=== PATIENT | female | born 1970 ===

== ENCOUNTER 2022-02-11 05:49 | Inpatient (IN) ==
[2022-02-11] MEDS ORDERED: Lactated Ringers 1000 ml BAG 1,000 ML IV SCH (06:00)
[2022-02-11] MEDS ORDERED: Scopolamine 1 mg/72hr PATCH TRANSDERM ONE (06:00)
[2022-02-11] MEDS ORDERED: Buffered Lidocaine 1% SYRIN 1 ml INTRADERM ONE (06:00)
[2022-02-11] MEDS ORDERED: Famotidine IV 10 MG/ML 2 ml VIAL (20 mg) IV ONE (06:00)
[2022-02-11] MEDS ORDERED: Heparin 5000 UNITS/ML 1 mL VIAL ONE (06:11)
[2022-02-11] MEDS ORDERED: ceFAZolin 2 GM in NS PREMIX 2 GM/100 ML BAG IVPB ONE (06:11)
[2022-02-11] MEDS ORDERED: Scopolamine 1 mg/72hr PATCH ONE (06:11)
[2022-02-11] MEDS ORDERED: Dexamethasone IV 4 MG/ML VIAL 1 ml VIAL ONE (07:10)
[2022-02-11] MEDS ORDERED: Ondansetron 4 mg VIAL 2 MG/ML 2 ml VIAL ONE (07:10)
[2022-02-11] MEDS ORDERED: Propofol 10 MG/ML 20 ML BTL ONE (07:10)
[2022-02-11] MEDS ORDERED: Succinylcholine 200 mg VIAL 20 mg/ml 10 ml VIAL (200 mg) ONE (07:12)
[2022-02-11] MEDS ORDERED: Lidocaine 1% w EPI 1:200,000 SDV 30 ML VIAL ONE (07:12)
[2022-02-11] MEDS ORDERED: Bupivacaine 0.25% SDV PF 10 ML VIAL INJ ONE (07:13)
[2022-02-11] MEDS ORDERED: Methylene Blue 0.5 % 50 MG/10 ML AMP IV ONE (07:16)
[2022-02-11] MEDS ORDERED: Rocuronium 50 mg VIAL 10 mg/ml 5 ml VIAL (50 mg) ONE ×3 (07:16→09:49)
[2022-02-11] MEDS ORDERED: fentaNYL 100 mcg/2 ml 50 MCG/ML VIAL ONE (07:18)
[2022-02-11] MEDS ORDERED: Glycopyrrolate IV 0.2 MG/ML 1 ML VIAL ONE (07:18)
[2022-02-11] MEDS ORDERED: Phenylephrine IV 10 MG/ML 1 ml VIAL ONE (07:19)
[2022-02-11] MEDS ORDERED: Sodium Chloride 0.9% 10 ML ONE (07:26)
[2022-02-11] MEDS ORDERED: Dexmedetomidine 200 mcg/2 ml 2 ml VIAL (200 mcg) ONE (07:26)
[2022-02-11] MEDS ORDERED: Metoprolol Tartrate 5 mg VIAL 5 ml VIAL (1 mg/ml) ONE (08:49)
[2022-02-11] MEDS ORDERED: Metoclopramide 5 MG/ML VIAL (10 mg) ONE (08:50)
[2022-02-11] MEDS ORDERED: HYDROmorphone 0.5 MG/0.5 ML SYRINGE ONE ×2 (09:25→10:17)
[2022-02-11] MEDS ORDERED: Prochlorperazine 5 mg/ml 2 ml VIAL (10 mg) IV PRN (09:45)
[2022-02-11] MEDS ORDERED: Naloxone 0.4 mg VIAL 0.4 mg/ml 1 ml VIAL IV PRN (09:45)
[2022-02-11] MEDS ORDERED: Ondansetron 4 mg VIAL 2 MG/ML 2 ml VIAL IV PRN (09:45)
[2022-02-11] MEDS ORDERED: Acetaminophen IV 1 GM/100ML 100 ML IV ONE (09:57)
[2022-02-11] MEDS ORDERED: HYDROcodone/ACET. 7.5/325 LIQ 15 ML UDC PO PRN (10:58)
[2022-02-11] MEDS ORDERED: HYDROmorphone 0.5 MG/0.5 ML SYRINGE IV SLOW PU PRN (10:58)
[2022-02-11] MEDS: HYDROmorphone 1 MG/1 ML SYRINGE IV PRN ×2 (11:00→11:17)
[2022-02-11] MEDS ORDERED: HYDROmorphone 1 MG/1 ML SYRINGE ONE (11:00)
[2022-02-11] MEDS: Lactated Ringers 1000 ml BAG 1,000 ML IV SCH ×2 (12:44→21:52)
[2022-02-11] MEDS: Ondansetron 4 mg VIAL 2 MG/ML 2 ml VIAL IV PRN ×2 (13:13→20:00)
[2022-02-11] MEDS: Heparin 5000 UNITS/ML 1 mL VIAL SUBCUT SCH ×2 (15:14→22:21)
[2022-02-11] MEDS: Acetaminophen IV 1 GM/100ML 100 ML IV PRN (17:05)
[2022-02-11] MEDS: Famotidine IV 10 MG/ML 2 ml VIAL (20 mg) IV SLOW PU SCH (22:21)
[2022-02-12] MEDS: Ondansetron 4 mg VIAL 2 MG/ML 2 ml VIAL IV PRN (03:20)
[2022-02-12] MEDS: Lactated Ringers 1000 ml BAG 1,000 ML IV SCH (05:12)
[2022-02-12] MEDS: Acetaminophen IV 1 GM/100ML 100 ML IV PRN (06:16)
[2022-02-12] MEDS: Heparin 5000 UNITS/ML 1 mL VIAL SUBCUT SCH ×2 (06:17→14:32)
[2022-02-12] MEDS ORDERED: Ondansetron ODT 4 mg TAB 4 MG TAB SL PRN (10:22)
[2022-02-12] MEDS: Famotidine IV 10 MG/ML 2 ml VIAL (20 mg) IV SLOW PU SCH (10:36)
[2022-02-12] MEDS ORDERED: D5W 1/2 NS KCl 20 meq 1000 ml 1,000 ML IV SCH (11:00)
[2022-02-12 11:01] VITALS: BP 108/73
== END 2022-02-12 16:30 | disposition home or self-care (01) | DRG 620 ==
LOC: AA 05:49 → SSU 12:16
PROVIDERS: ADMIT Surgery; ATTEND Surgery